=== PATIENT | female | born 1975 | race Caucasian/White ===

== ENCOUNTER 2019-03-02 19:49 | Emergency (ER) | payer BC ==
[~2019-03-02] VITALS: Ht 165.1 cm; Wt 66.0 kg
[2019-03-02 19:54] VITALS: BP 157/96
--- NOTE | 2019-03-02 20:30 | NUR ---
PATIENT STATED THAT SHE WAS RECENTLY SEEN IN URGENT CARE, FLU WAS NEGATIVE. PATIENT IS IMMUNOCOMPROMISED DUE TO RA TREATMENTS OF PREDNISONE. PATIENT TAKES MEDICATION REGULARLY, AND HAS HAD A HISTORY OF DECREASED/INCREASED RENAL FUNCTION. PATIENT HAS A UROLOGIST, AND FOLLOWS UP. PATIENT STATED THAT HER SYMPTOMS HAVE NOT BEEN IMPROVING, WORSENING WITH FLANK PAIN. PATIENT'S URGENT CARE PHYSICIAN STATED THAT HER URINE MAY INDICATE THAT SHE HAD POLYNEPHRITIS. PATIENT COULD NOT GET INTO PRIMARY CARE.
[2019-03-02] MEDS ORDERED: PRED10TA14 PO (20:38)
[2019-03-02] MEDS ORDERED: ABAT125S IM (20:39)
[2019-03-02 22:23] LABS: HCG UR SG 1.013 (1.003-1.030); MICROSCOPIC AUTO
[2019-03-02 22:24] LABS: CULTURE INDICATED? YES
[2019-03-02 22:26] LABS: BASOPHILS # (AUTO) 0.05 x10^3/uL (0-0.1); BASOPHILS % (AUTO) 1 % (0-1); EOSINOPHILS # (AUTO) 0.15 x10^3/uL (0-0.4); EOSINOPHILS % (AUTO) 2 % (1-7); LYMPHOCYTES # (AUTO) 3.32 x10^3/uL (1-3.4); LYMPHOCYTES % (AUTO) 35 % (22-44); MD NO; MEAN CORPUSCULAR HEMOGLOBIN 30.4 pg (27.0-34.8); MEAN CORPUSCULAR HGB CONC 32.9 g/dL (32.4-35.8); MEAN CORPUSCULAR VOLUME 92.4 fL (80-100); MEAN PLATELET VOLUME 7.3 fL (7.4-10.4); MONOCYTES # (AUTO) 0.57 x10^3/uL (0.2-0.8); MONOCYTES % (AUTO) 6 % (2-9); NEUTROPHILS # (AUTO) 5.32 x10^3/uL (1.8-6.8); NEUTROPHILS % (AUTO) 57 % (42-75); PLATELET COUNT 449 x10^3/uL (130-400); RED BLOOD COUNT 4.61 x10^6/uL (3.82-5.3)
[2019-03-02 22:35] LABS: ALANINE AMINOTRANSFERASE 45 U/L (12-78); ALBUMIN 3.5 g/dL (3.4-5.0); ANION GAP 2 mmol/L (5-15); CALCIUM 9.2 mg/dL (8.5-10.1); CHLORIDE 106 mmol/L (98-107); CREATININE 1.01 mg/dL (0.55-1.02)
[2019-03-02 22:37] LABS: ALKALINE PHOSPHATASE 106 U/L (45-117); BILIRUBIN,TOTAL 0.2 mg/dL (0.2-1.0); TOTAL PROTEIN 7.9 g/dL (6.4-8.2)
--- NOTE | 2019-03-02 23:01 | NUR ---
updated patient on plan of care. no noted acute distress. report given to ROBERT nath
== END 2019-03-02 23:52 | disposition home or self-care (01) ==
LOC: ED 23:51
DX: N30.00 Acute cystitis without hematuria (principal); N13.30 Unspecified hydronephrosis
CPT/HCPCS: 36415; 76770; 80053; 81001; 81025; 83690; 85025; 87077; 87086; 87186; 99284